=== PATIENT | male | born 1965 | race African-American/Black ===

== ENCOUNTER 2021-05-20 18:37 | Emergency (ER) | payer OTHER ==
[2021-05-20 18:47] VITALS: BP 179/103; PULSE 67; RESP 20; TEMP 98.4
[2021-05-20] MEDS ORDERED: ACETAMINOPHEN TAB 500 MG TAB PO STA (18:53)
--- NOTE | 2021-05-20 19:19 | XR ---
EXAMINATION TYPE: XR tibia fibula RT DATE OF EXAM: 05/20/2021 7:09 PM INDICATION: Patient age:Male; 55 years old; Reason for study: Injury/pain. COMPARISON: None TECHNIQUE: The right tibia/fibula was examined in AP and lateral projections. FINDINGS: There is an acute fracture through the proximal fibula. There is no significant displacemen t. Enthesophyte off the superior and inferior patellar poles present. Soft tissues are grossly within normal limits. IMPRESSION: Acute fracture through the proximal right fibula.
--- NOTE | 2021-05-20 20:23 | ED ---
Lower Extremity Injury HPI - General Chief Complaint: Extremity Injury, Lower Stated Complaint: Fall Time Seen by Provider: 05/20/21 18:50 Source: patient, RN notes reviewed Mode of arrival: wheelchair Limitations: no limitations - History of Present Illness Initial Comments: This is a pleasant 55-year-old male slipped on water at [facility] where he is undergoing treatment for cocaine. Patient states he pulled his right leg underneath. He is complaining of pain to the lateral aspect of the right lower leg. Denies any other injuries. No blood thinners. No head or neck injury. No headache, no fever or chills, no changes in vision or hearing, no sore throat or difficulty with speech, no neck pain, no chest pain or shortness of breath, no abdominal pain, no nausea or vomiting, no changes in urination or bowel movements, no numbness or tingling, no extremity pain, no skin rashes or lesions . Patient also complaining of chronic ALLERGIC rhinitis. And requesting that I perform an HEENT examination. - Related Data Previous Rx's Medication Instructions Recorded Acetaminophen [Tylenol] 500 mg PO Q4-6H PRN #24 tab 05/20/21 Loratadine [Claritin] 10 mg PO DAILY 30 Days #30 tab 05/20/21 Allergies Allergy/AdvReac Type Severity Reaction Status Date / Time No Known Allergies Allergy Verified 05/20/21 20:02 Review of Systems ROS Statement: Those systems with pertinent positive or pertinent negative responses have been documented in the HPI. ROS Other: All systems not noted in ROS Statement are negative. Past Medical History Past Medical History: No Reported History History of Any Multi-Drug Resistant Organisms: None Reported Past Surgical History: No Surgical Hx Reported Past Psychological History: Anxiety, Bipolar, Depression Smoking Status: Current every day smoker Past Alcohol Use History: None Reported Past Drug Use History: None Reported, Cocaine General Exam Limitations: no limitations General appearance: alert, in no apparent distress Head exam: Present: atraumatic, normocephalic, normal inspection Eye exam: Present: normal appearance, PERRL, EOMI. Absent: scleral icterus, conjunctival injection, periorbital swelling ENT exam: Present: normal oropharynx, mucous membranes moist, TM's normal bilaterally, normal external ear exam, other (Edematous turbinates with no evidence of significant inflammation or purulent discharge. No sinus tenderness.). Absent: mucous membranes dry Neck exam: Present: normal inspection. Absent: tenderness, meningismus, lymphadenopathy Respiratory exam: Present: normal lung sounds bilaterally. Absent: respiratory distress, wheezes, rales, rhonchi, stridor Cardiovascular Exam: Present: regular rate, normal rhythm, normal heart sounds. Absent: systolic murmur, diastolic murmur, rubs, gallop, clicks GI/Abdominal exam: Present: soft, normal bowel sounds. Absent: distended, tenderness, guarding, rebound, rigid Extremities exam: Present: normal inspection, full ROM, tenderness, normal capillary refill, other (Full range of motion all major joints. Tender along the proximal aspect of the right fibula. No break in skin integrity. No crepitus. Pulses intact. Distal sensation intact.). Absent: pedal edema, joint swelling, calf tenderness Back exam: Present: normal inspection Neurological exam: Present: alert, oriented X3, CN II-XII intact Psychiatric exam: Present: normal affect, normal mood Skin exam: Present: warm, dry, intact, normal color. Absent: rash Course Vital Signs 05/20/21 18:44 Temperature 98.4 F Pulse Rate 67 Respiratory 20 Rate Blood Pressure 179/103 O2 Sat by Pulse 97 Oximetry Procedures - Orthopedic Splinting/Casting Injury #1 Side: right Lower Extremity Injury Location: short leg Lower Extremity Immobilizer: posterior splint Other Orthopedic Equipment: crutches Additional Comments: Distal neurovascular status intact. Splint care and crutch training discussed. Medical Decision Making - Medical Decision Making Patient had isolated injury to his right lower leg. Also has evidence of ALLERGIC rhinitis. We'll add on an antihistamine to the patient's Flonase. No evidence of infectious process. OCL splint applied. Neurovascular status intact. Crutches provided. Patient given follow-up with orthopedics. Discussed conservative measures. Restrictions written. Patient was told to return to the ER for any signs or symptoms worsen. Told to return immediately if any other problems arise. All questions answered. Treatment plan discussed. Patient in agreement In control with acetaminophen. Supervising physician is Dr. Petit Disposition Clinical Impression: Fracture of proximal end of left fibula Disposition: HOME SELF-CARE Condition: Good Instructions (If sedation given, give patient instructions): Leg Fracture (ED), Splint Care (ED), Crutch Instructions (ED) Additional Instructions: Leave the splint on until follow-up with orthopedics. Use the crutches as directed. He can take Tylenol as needed for pain control. Follow-up with your regular physician as directed. Return to the ER immediately if any symptoms worsen, new symptoms arise, or any other problems develop. Prescriptions: Loratadine [Claritin] 10 mg PO DAILY 30 Days #30 tab Acetaminophen [Tylenol] 500 mg PO Q4-6H PRN #24 tab PRN Reason: Pain Is patient prescribed a controlled substance at d/c from ED?: No Referrals: Micaela Agudelo DO [Doctor of Osteopathic Medicine] - 05/24/21
== END 2021-05-20 21:33 | disposition home or self-care (01) ==
LOC: EC 18:37
DX: S82.491A Other fracture of shaft of right fibula, initial encounter for closed fracture (principal); J30.9 Allergic rhinitis, unspecified; F17.200 Nicotine dependence, unspecified, uncomplicated; W01.0XXA Fall on same level from slipping, tripping and stumbling without subsequent striking against object, initial encounter
CPT/HCPCS: 29125; 99284